=== PATIENT | female | born 1965 | race Caucasian/White ===

== ENCOUNTER → 2021-06-13 | Outpatient (CLI) | payer OTHER ==
--- NOTE | 2021-06-13 13:07 | MM ---
Reason for exam: screening (asymptomatic). Last mammogram was performed 2 years and 4 months ago. History: Patient is postmenopausal. Family history of breast cancer in maternal aunt. Took hormonal contraceptives for 7 years. Physical Findings: A clinical breast exam by your physician is recommended on an annual basis and results should be correlated with mammographic findings. MG Screening Mammo w CAD Bilateral CC and MLO view(s) were taken. Prior study comparison: January 29, 2019, mammogram, performed at [facility]. May 08, 2016, mammogram, performed at [facility]. There are scattered fibroglandular densities. ASSESSMENT: Negative, BI-RAD 1 RECOMMENDATION: Routine screening mammogram of both breasts in 1 year.
== END | disposition home or self-care (01) ==
LOC: RADMAMWWP 08:04
PROVIDERS: ATTEND Family Medicine
DX: Z12.31 Encounter for screening mammogram for malignant neoplasm of breast (principal)
CPT/HCPCS: 77067

== ENCOUNTER → 2021-06-14 | Outpatient (CLI) | payer OTHER ==
--- NOTE | 2021-06-15 08:21 | EST ---
EXERCISE STRESS AGE: 56 SEX: M HT: 5'7" WT: 180 lbs. PROTOCOL: Artur STAGE: 3 DURATION OF EXERCISE: 8:30 HEART RATE REST: 80 BLOOD PRESSURE REST: 130/88 MAXIMUM HEART RATE ACHIEVED: 167 MAXIMUM BLOOD PRESSURE: 176/76 85% MPHR: 139 100% MPHR: 164 METS: 10.1 INDICATIONS: Chest pain Baseline EKG shows sinus rhythm, normal axis, normal intervals. Patient exercised on Artur protocol for a total of 8 minutes and 30 seconds achieving 9 METS, 100% of predicted maximal heart rate without chest pain. At peak exercise there was [address]-segment depression noted in the inferolateral leads that becomes more horizontal in recovery. CONCLUSION: 1. Good exercise tolerance. 2. Abnormal stress test by EKG criteria. FÁTIMA / DARIAN: [id number] /
== END | disposition home or self-care (01) ==
LOC: RADNMMAIN 10:19
PROVIDERS: ATTEND Family Medicine
DX: R94.39 Abnormal result of other cardiovascular function study (principal); I10 Essential (primary) hypertension; E78.2 Mixed hyperlipidemia; Z82.49 Family history of ischemic heart disease and other diseases of the circulatory system
CPT/HCPCS: 93017